=== PATIENT | male | born 1990 | race Caucasian/White ===

== ENCOUNTER 2018-08-14 11:49 | Day surgery (SDC) | payer OTHER ==
--- NOTE | 2018-08-14 12:25 | ED ---
Abdominal Pain/Male - HPI Summary HPI Summary: A 27 y/o M referred from [facility] presents to ED with c/o sharp, umbilical abd pain onset this AM approx 0530. The pain woke him from sleep. Associated sx: dull pain in R flank, decreased appetite. Denies nausea, fever, chills. He did have a normal BM this AM but it did not relieve the pain. Pt went to sleep last night at baseline, and he felt fine yesterday. He is under recent stress. He has taken Hyoscyamine for previous sharp R-sided abd pains. He 's had gallbladder US 2x previous but there were no abnormalities. The last episode of sharp abd pain was a month ago, and before that, almost a year. He took the Hyoscyamine this AM to no relief. - History of Current Complaint Chief Complaint: EDAbdPain Stated Complaint: ABD PAIN PER PT Time Seen by Provider: 08/14/18 12:18 Hx Obtained From: Patient Onset/Duration: Sudden Onset, Lasting Hours, Still Present Timing: Constant Severity Initially: Moderate Severity Currently: Mild Pain Intensity: 1 Pain Scale Used: 0-10 Numeric Location: Umbilical Character: Sharp Associated Signs And Symptoms: Positive: Decreased Appetite, Other - pos: dull pain in R flank. neg: chills. Negative: Fever, Nausea - Allergies/Home Medications Allergies/Adverse Reactions: Allergies Allergy/AdvReac Type Severity Reaction Status Date / Time amoxicillin Allergy Nausea And Verified 08/14/18 11:58 Vomiting oxycodone [From Percocet] Allergy Nausea And Verified 08/14/18 11:58 Vomiting anesthesia Allergy See Comment Uncoded 08/14/18 14:13 Home Medications: Home Medications NK [No Home Medications Reported] 08/14/18 [History Confirmed 08/14/18] PMH/Surg Hx/FS Hx/Imm Hx Previously Healthy: No GI History: Reports: Other GI Disorders - abd spasms Sensory History: Denies: Hx Legally Blind, Hx Deafness Neurological History: Denies: Hx Dementia Infectious Disease History: No Infectious Disease History: Denies: Traveled Outside the [place] in Last 30 Days - Family History Known Family History: Positive: Cardiac Disease - grandmother - Social History Occupation: Student Lives: Dormitory/Roommates Hx Tobacco Use: No Review of Systems Negative: Fever, Chills Positive: Abdominal Pain, Other - pos: decreased oral intake. Negative: Nausea Positive: flank pain - F All Other Systems Reviewed And Are Negative: Yes Physical Exam - Summary Physical Exam Summary: Appearance: Well-appearing, Well-nourished, lying in bed comfortably Skin: Warm, dry, no obvious rash Eyes: sclera anicteric, no conjunctival pallor ENT: mucous membranes moist, pharynx appears normal Neck: Supple, nontender Respiratory: Clear to auscultation, no signs of respiratory distress Cardiovascular: Normal S1, S2. No murmurs. Normal distal pulses in tibial and radial bilaterally. Abdomen: Soft, normal active bowel sounds present. RLQ tenderness without peritoneal signs. Musculoskeletal: Normal, Strength/ROM Intact Neurological: A&Ox3, awake and alert, mentation is normal, speech is fluent and appropriate Psychiatric: affect is normal, does not appear anxious or depressed Triage Information Reviewed: Yes Vital Signs On Initial Exam: Initial Vitals Temp Pulse Resp BP Pulse Ox 98.3 F 67 18 105/67 98 08/14/18 11:55 08/14/18 11:55 08/14/18 11:55 08/14/18 11:55 08/14/18 11:55 Vital Signs Reviewed: Yes Diagnostics - Vital Signs Vital Signs Temp Pulse Resp BP Pulse Ox 08/14/18 11:55 98.3 F 67 18 105/67 98 - Laboratory Result Diagrams: 08/14/18 12:47 08/14/18 12:47 Lab Statement: Any lab studies that have been ordered have been reviewed, and results considered in the medical decision making process. - CT A/P CT CT Interpretation Completed By: Radiologist Summary of CT Findings: IMPRESSION: CT findings could be compatible with early appendicitis without evidence of macro perforation or abscess formation. ED provider has reviewed this report. Re-Evaluation - Re-Evaluation 1 Re-Evaluation Time: 14:16 Comment: Discussing results with pt. laboratory studies are unremarkable with a normal white blood cell count and urinalysis. His physical exam remains fairly benign with minimal right lower quadrant tenderness but no peritoneal signs. His pain has not gotten any worse. I discussed the options with the patient including watchful waiting versus CT scan now and the patient would prefer to have the CT scan now. I think this is perfectly reasonable. 2 Re-Evaluation Time: 17:35 Comment: Discussing plans to go to OR. Abdominal Pain Male Course/Dx - Course Course Of Treatment: Pt is a 27 y/o M referred from [facility] presenting with sharp, umbilical abd pain onset 0530 that woke him from sleep. Denies nausea, fever, chills. PE found RLQ tenderness without peritoneal signs. Labwork and UA are unremarkable. Appendix US was unable to visualize appendix, no free or loculated fluid found within the RLQ. A/P CT shows "CT findings could be compatible with early appendicitis without evidence of macro perforation or abscess formation." - Diagnoses Provider Diagnoses: Acute appendicitis - Provider Notifications Discussed Care Of Patient With: Oscar Ritter - surgery Time Discussed With Above Provider: 17:25 Instructed by Provider To: MD Will See In ED - Will review CT and see pt. Consulted at 1730: will take pt to OR. Discharge - Sign-Out/Discharge Documenting (check all that apply): Patient Departure - ADMIT - OR Patient Received Moderate/Deep Sedation with Procedure: No - Discharge Plan Condition: Fair Disposition: ADMITTED TO [facility] - Billing Disposition and Condition Condition: FAIR Disposition: Admitted to [facility] - Attestation Statements Document Initiated by Scribe: Yes Documenting Scribe: Bar Stockton Provider For Whom Scribe is Documenting (Include Credential): Dr. Moe Willis MD Scribe Attestation: Bar Quiroz scribed for Dr. Moe Willis MD on 08/17/18 at 0630. Scribe Documentation Reviewed: Yes Provider Attestation: The documentation as recorded by the Bar johnson accurately reflects the service I personally performed and the decisions made by , Dr. Moe Willis MD Status of Scribe Document: Viewed
[2018-08-14] MEDS ORDERED: NS 0.9% 1000 ML** 2,000 ML IV ONE (12:31)
[2018-08-14 13:03] LABS: ABS Basophils 0 10^3/ul (0-0.2); ABS Eosinophils 0 10^3/ul (0-0.6); ABS Lymphocytes 0.8 10^3/ul (1.0-4.8); ABS Monocytes 0.5 10^3/ul (0-0.8); ABS Neutrophils 6.8 10^3/ul (1.5-7.7); ABS Nucleated RBC 0 10^3/ul; Eosinophil % 0.6 %; Hematocrit 45 % (36-46); Hemoglobin 15.9 g/dL (14.0-18.0); Lymphocyte % 9.7 %; Mean Corpuscular HGB Conc 35 g/dL (31-36); Mean Corpuscular Hemoglobin 32 pg (27-31); Mean Corpuscular Volume 90 fL (80-94); Mean Platelet Volume 8.5 fL (7.4-10.4); Nucleated Red Blood Cells % 0.1; Platelet Count 189 10^3/uL (150-450); Red Blood Count 5.01 10^6 /uL (4.18-5.48); Red Cell Distribution Width 13 % (10.5-15); White Blood Count 8.1 10^3/uL (3.5-10.8)
[2018-08-14 13:21] LABS: Albumin 4.7 g/dL (3.2-5.2); Albumin/Globulin Ratio 2.1 (1-3); BUN/Creatinine Ratio 12.8 (8-20); Calcium 9.5 mg/dL (8.6-10.3); EGFR African American 115.6 (>60); EGFR Non-African American 95.6 (>60); Globulin 2.2 g/dL (2-4); Potassium 3.7 mmol/L (3.5-5.0); Total Protein 6.9 g/dL (6.4-8.9)
[2018-08-14 14:14] LABS: Urine Appearance Clear; Urine Bilirubin Negative (Negative); Urine Blood Negative (Negative); Urine Color Straw; Urine Glucose Negative (Negative); Urine Ketones Negative (Negative); Urine Nitrite Negative (Negative); Urine Protein Negative (Negative); Urine Urobilinogen Negative (Negative)
[2018-08-14] MEDS ORDERED: Iohexol 300* (CONTRAST) 10 ML SDV IV ONE (15:43)
[2018-08-14] MEDS ORDERED: Piperacillin/Tazobac ADVAN(*) 3.375 GM in NS 0.9% 100 ML* 100 ML IVPB ONE (17:39)
[2018-08-14] MEDS ORDERED: Bupivacaine 0.5%* 50 ML VIAL ONE (17:55)
[2018-08-14] MEDS ORDERED: fentaNYL* 50 MCG/ML 2 ML VIAL (100 MCG VIAL) ONE (18:36)
[2018-08-14] MEDS ORDERED: Midazolam* 1 MG/ML 5 ML VIAL (5 MG) ONE (18:36)
[2018-08-14] MEDS ORDERED: DiMENhydriNATE IV* 50 MG/ML VIAL ONE ×2 (19:00→20:14)
[2018-08-14] MEDS ORDERED: Dexamethasone IV* 4 MG/ML 1 ML (4 MG) ONE (19:00)
[2018-08-14] MEDS ORDERED: Propofol* 10 MG/ML 20 ML BTL ONE (19:00)
[2018-08-14] MEDS ORDERED: Lidocaine 2% PF * 5 ML VIAL ONE (19:00)
[2018-08-14] MEDS ORDERED: Ondansetron INJ* 2 MG/ML VIAL ONE (19:00)
[2018-08-14] MEDS ORDERED: Succinylcholine* 20 MG/ML 10 ML VIAL ONE (19:00)
[2018-08-14] MEDS ORDERED: Ketorolac INJ* 30 MG/ML 1 ML VIAL ONE (19:00)
[2018-08-14] MEDS ORDERED: HYDROmorphone INJ1* 1 MG/ML SYRINGE ONE ×2 (19:03→20:14)
[2018-08-14] MEDS ORDERED: Acetaminophen IV 1GM/100ML * 1,000 MG/100 ML VIAL IVPB ONE (19:38)
[2018-08-14] MEDS ORDERED: Naloxone* 0.4 MG/ML 1 ML VIAL IV PRN (19:38)
[2018-08-14] MEDS ORDERED: DiMENhydriNATE IV* 50 MG/ML VIAL IV PUSH PRN (19:38)
[2018-08-14] MEDS ORDERED: HYDROmorphone INJ1* 1 MG/ML SYRINGE IV PRN (19:38)
[2018-08-14] MEDS ORDERED: Acetaminophen IV 1GM/100ML * 100 ML ONE (20:14)
[2018-08-14] MEDS ORDERED: oxyCODONE/Acetamin 5/325 MG* TAB ONE (20:44)
--- NOTE | 2018-08-14 21:32 | HP ---
HISTORY AND PHYSICAL: DATE OF ADMISSION: 08/14/18 CHIEF COMPLAINT: Abdominal pain. HISTORY OF PRESENT ILLNESS: This pleasant 27-year-old gentleman presented to the emergency room after having abdominal pain since 5:30 this morning. Pain localized to the right lower quadrant. He presented to the emergency room where workup included the CT scan of the abdomen and pelvis, which showed enlarged appendix with inflammatory changes concerning for appendicitis. No pain like this prior to this. No nausea, vomiting, fevers, or chills. PAST MEDICAL HISTORY: Denies history of cardiac, liver, kidney or lung disease. PAST SURGICAL HISTORY: None. MEDICATIONS: None. ALLERGIES: AMOXICILLIN. FAMILY HISTORY: Denies history of colorectal or breast cancer. SOCIAL HISTORY: No tobacco or alcohol use. He is here with his girlfriend. 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 REVIEW OF SYSTEMS: As per history of present illness. PHYSICAL EXAMINATION GENERAL: Denies weight loss, change of appetite. He is lying comfortably in bed, afebrile. VITAL SIGNS: Stable. HEENT: The sclerae are anicteric. Oral mucosa is pink and moist. NECK: Supple. No JVD. HEART: Regular. LUNGS: Clear. ABDOMEN: Soft, nondistended, tender in the right lower quadrant. No masses or organomegaly. EXTREMITIES: No clubbing, cyanosis or edema. NEURO EXAM: Grossly intact. No focal or motor sensory deficits. SKIN: No rash, petechiae, or jaundice. LABORATORY STUDIES: Normal white blood cell count. IMPRESSION: Abdominal pain, abnormal CT scan consistent with appendicitis. PLAN: Appendectomy. I discussed this with the patient. Described the surgery and its risks including but not limited to bleeding, infection, injury to intraabdominal contents including the bowel or other intraabdominal contents. He seemed to understand, would like to proceed with surgery and all questions were answered. He discussed difficulty "with anesthesia" during his wisdom tooth extraction approximately 10 years ago, but does not have a lot of specifics. He will discuss this with Anesthesia as well. [id number]/CPS #: [id number] MTDD
[2018-08-14 21:42] VITALS: BP 119/58
--- NOTE | 2018-08-15 00:53 | OP ---
DATE OF OPERATION: 08/14/18 [facility] DATE OF : 88 SURGEON: Oscar Ritter MD. PRE-OP DIAGNOSIS: Appendicitis. POST-OP DIAGNOSIS: Appendicitis. OPERATIVE PROCEDURE: Laparoscopic appendectomy. INDICATIONS FOR PROCEDURE: Appendicitis. Risks including, but not limited to bleeding, infection, injury to intraabdominal contents including the bowel and other intraabdominal contents were explained to the patient who seemed to understand and agreed to the procedure. All questions were answered. DESCRIPTION OF PROCEDURE: The patient was taken to the operating room, placed supine. Preoperative antibiotics were given. After the successful induction of general endotracheal anesthesia, the abdomen was prepped and draped in a sterile fashion. A time-out was performed indicating correct patient, correct procedure. A 5-mm Optiview trocar was placed in the left lower quadrant under direct visualization of the camera using a bladeless Optiview trocar. Pneumo- peritoneum was achieved at 15 mmHg. The camera was placed in the abdomen and the abdomen was scanned. There was no obvious injury from trocar placement. A 12-mm infraumbilical and 5 mm suprapubic trocar were placed under direct visualization of the camera. The patient was tilted slightly left in a head down position. The cecum was gently mobilized, revealing an acutely inflamed appearing appendix. The base was divided with 45 mm gold staple load and the mesoappendix was then divided using a 45 mm silver vascular load. The appendix was placed into an endobag and removed through the umbilical port site. The right lower quadrant was inspected. EBL was minimal. Hemostasis was intact. The bowel was once again inspected under the trocar sites. No obvious injury was noted and the abdomen was scanned. No other injuries were noted or abnormalities. He was placed back in the supine position. Pneumoperitoneum was allowed to release from the abdomen. The trocars were removed. The skin was closed with Monocryl and glue at all three sites. He tolerated the procedure well. He was extubated and taken to the Recovery in stable condition. [id number]/CPS #: [id number] MTDD
== END 2018-08-14 18:11 | disposition short-term general hospital (02) ==
LOC: ED 11:49 → OR 18:11
PROVIDERS: ATTEND Surgery
DX: K35.80 Unspecified acute appendicitis (principal); Z88.0 Allergy status to penicillin
CPT/HCPCS: 36415; 74177; 76705; 80053; 81003; 83690; 85025; 88304; 99285; A9270-GY; C1776; J0330; J1100; J1170; J1240; J1885; J2250; J2405; J2543; J2704; J3010; Q9967